=== PATIENT | female | born 1965 | race Caucasian/White ===

== ENCOUNTER → 2021-04-20 12:38 | Outpatient (BNVA) | payer OTHER, SELFPAY | PROVIDERS: PCP Internal Medicine; Visit Provider Surgery Vascular Surgery | DX: I73.9 Peripheral vascular disease, unspecified (principal); I83.12 Varicose veins of left lower extremity with inflammation; J44.9 Chronic obstructive pulmonary disease, unspecified; E03.9 Hypothyroidism, unspecified; F17.210 Nicotine dependence, cigarettes, uncomplicated; Z88.8 Allergy status to other drugs, medicaments and biological substances | CPT/HCPCS: 99212 ==

== ENCOUNTER 2021-05-01 09:57 | Outpatient (REF) | payer OTHER, SELFPAY ==
--- NOTE | ~2021-05-01 | US_ITS ---
EXAMINATION: US LOWER EXTREMITY VENOUS (REFLUX EXAM), BILATERAL CLINICAL INDICATION: This is a 56-year-old female with venous insufficiency and varicose veins. Previous history of bilateral laser ablation. COMPARISON: None. TECHNIQUE: Color flow triplex imaging and compression Doppler was performed to evaluate both the deep and the superficial systems bilaterally. To evaluate the superficial system, the examination was performed in the upright position. Color-flow Doppler ultrasound and compression ultrasound were utilized. In addition, maneuvers were utilized to demonstrate reflux. FINDINGS: 1. DEEP VENOUS ULTRASOUND OF THE RIGHT LOWER EXTREMITY: Common Femoral Vein: Compressible, normal respiratory variation and augmented flow. Femoral vein: Compressible, normal color flow and augmentation. Popliteal Vein: Compressible, normal augmentation. Deep Reflux: There is no evidence of reflux in the deep system in either the common femoral vein or the popliteal vein. There is no evidence of a Gonzalez's cyst. 2. SUPERFICIAL ULTRASOUND WITH DOPPLER OF RIGHT LOWER EXTREMITY: GREAT SAPHENOUS VEIN: Saphenofemoral Junction: 0.7 cm. There is no reflux. Mid Thigh: Not seen. Above Knee: Not seen. Below Knee: 0.3 cm. The reflux time is 3184 ms. Mid Calf: 0.3 cm. The reflux time is 1004 to 48 milliseconds. Ankle: 0.2 cm. The reflux time is 2716 ms. GSV REFLUX: The midportion of the great saphenous vein is absent and may have previously been treated. There is no reflux at the saphenofemoral junction. There is reflux below the knee. DUPLICATED GREAT SAPHENOUS VEIN: There is a 0.3 cm duplicated lateral great saphenous vein without evidence of reflux. SMALL SAPHENOUS VEIN: Proximal: 0.2 cm Distal: 0.2 cm SSV REFLUX: No evidence of reflux. VEIN OF GIACOMINI: None Imaged. PERFORATORS: There are 0.2 cm calf proximal perforators with 444 ms of reflux. There is a 0.4 cm mid calf leather tanner without reflux. VARICOSITIES: There are 0.4 cm varicose veins seen in the mid thigh, proximal calf, mid calf with greater than 3 seconds of reflux. 3. DEEP VENOUS ULTRASOUND OF THE LEFT LOWER EXTREMITY: Common Femoral Vein: Compressible, normal respiratory variation and augmented flow. Femoral Vein: Compressible, normal color flow and augmentation. Popliteal Vein: Compressible, normal augmentation. Deep Reflux: There is no evidence of reflux in the deep system in either the common femoral vein or the popliteal vein. There is no evidence of a Gonzalez's cyst. 4. SUPERFICIAL ULTRASOUND WITH DOPPLER OF LEFT LOWER EXTREMITY: GREAT SAPHENOUS VEIN: The mid thigh great saphenous vein is difficult to delineate downward. This may be secondary to previous treatment with a neovascularity that looks like the saphenous vein. Saphenofemoral Junction: 0.9 cm. There is no reflux. Mid Thigh: 0.3 cm. The reflux time is 1508 ms. Above Knee: 0.4 cm. The reflux time is 2228 ms. Below Knee: 0.2 cm. The reflux time is 1322 ms. Mid Calf: 0.1 cm. There is no reflux. Ankle: 0.3 cm. There is no reflux. GSV REFLUX: The great saphenous vein is difficult to delineate. However, reflux is noted. This vein may actually be more superficial to the great saphenous vein not within the fascia. DUPLICATED GREAT SAPHENOUS VEIN: There is a 0.6 cm duplicated lateral great saphenous vein without reflux at the junction. There is distal reflux where it measures 0.2 cm. The reflux time is 2124 ms. SMALL SAPHENOUS VEIN: Proximal: 0.2 cm Distal: 0.3 cm SSV REFLUX: No evidence of reflux. VEIN OF GIACOMINI: None Imaged. PERFORATORS: There are 0.2 cm distal and proximal calf perforators without reflux. VARICOSITIES: There are 0.8 cm and 0.7 cm, respectively, varicose veins. Some of these varicose veins demonstrate greater than 3 seconds of reflux. US/US venous duplex LE BI IMPRESSION: 1. The mid thigh right great saphenous vein appears occluded. There is no reflux at the saphenofemoral junction. There is distal right great saphenous vein reflux. 2. The right small saphenous vein is patent without reflux. 3. There are varicose veins measuring 0.4 cm in the right leg with greater than 3 seconds of reflux. 4. The left great saphenous vein appears patent at the saphenofemoral junction without reflux. There is a vein that appears to be outside the fascia which may be neovascularity. There is reflux in the segment from the mid thigh to below the knee. 5. There is a patent left small saphenous vein without reflux. 6. There are varicose veins in the left leg as noted with reflux.
== END 2021-05-01 09:58 | disposition home or self-care (01) ==
LOC: HO.US 09:57
PROVIDERS: PCP Internal Medicine; Visit Provider Surgery Vascular Surgery
DX: I83.12 Varicose veins of left lower extremity with inflammation (principal)
CPT/HCPCS: 93970

== ENCOUNTER 2021-05-16 09:33 | Outpatient (REF) | payer OTHER, SELFPAY ==
--- NOTE | ~2021-05-16 | US_ITS ---
EXAMINATION: US NONINVASIVE ASSESSMENT OF THE ARTERIES OF BOTH LOWER EXTREMITIES INCLUDING PVR EXAM AND BILATERAL LOWER EXTREMITY DUPLEX CLINICAL INFORMATION: Peripheral vascular disease, unspecified. COMPARISON: None TECHNIQUE: Ankle pulse volume recordings, ankle pressure measurements and ankle brachial indices were obtained of the lower extremity arterial system bilaterally in addition to duplex Doppler techniques with wave form analysis and measurement of velocities in the common femoral, profunda femoral, superficial femoral, popliteal, tibial and peroneal arteries. The study was performed only at rest. FINDINGS: RIGHT LEG 1. Right Ankle-Brachial Index: 0.94 (higher of the DP/PT) >0.97-1.25 = normal - no significant arterial disease 0.75-0.96 = mild peripheral arterial disease 0.5-0.74 = moderate peripheral arterial disease <0.50 = severe peripheral arterial disease <0.30 = critical arterial disease 2. Segmental Pressures (mmHg): Brachial: 156 Ankle: PT 157, DP 151 3. PVR Waveforms: Ankle: Abnormal--no dicrotic notch, somewhat irregular tracing possibly related to technical factors. 4. Direct Duplex: Common femoral artery: 194 cm/s, Multiphasic Profunda femoris artery: 95.6 cm/s, Monophasic Superficial femoral artery (proximal): 105 cm/s, Multiphasic Superficial femoral artery (mid): 138 cm/s, Multiphasic There is a collateral vessel off the midportion of the SFA with peak systolic velocity of 35.8 cm/s and monophasic flow. Superficial femoral artery (distal): 72.1 cm/s, Multiphasic Proximal Popliteal artery: 63.3 cm/s, Multiphasic Distal popliteal artery: 67.4 cm/s, Multiphasic Distal posterior tibial artery: 40.7 cm/s, Multiphasic There is a collateral vessel off the midportion of the posterior tibial artery with peak systolic velocity of 18.1 cm/s and monophasic flow. Peroneal artery: 33.1 cm/s, Multiphasic LEFT LE. Left Ankle-Brachial Index: 0.34 (higher of the DP/PT) >0.97-1.25 = normal - no significant arterial disease 0.75-0.96 = mild peripheral arterial disease 0.5-0.74 = moderate peripheral arterial disease <0.50 = severe peripheral arterial disease <0.30 = critical arterial disease 2. Segmental Pressures: Brachial: 160 Ankle: PT 54, DP 47 3. PVR Waveforms: Ankle: Abnormal--blunted waveform, no dicrotic notch. 4. Direct Duplex: Common femoral artery: 55.4 cm/s, Monophasic Profunda femoris artery: 32.1 cm/s, Monophasic Superficial femoral artery (proximal): 50 cm/s, Monophasic Superficial femoral artery (mid): 66.4 cm/s, Monophasic There is a collateral vessel off the midportion of the SFA with peak systolic velocity of 25.1 cm/s and monophasic flow. Superficial femoral artery (distal): 31.8 cm/s, Monophasic Proximal Popliteal artery: 26.5 cm/s, Monophasic Distal popliteal artery: 25.3 cm/s, Monophasic Distal posterior tibial artery: 26.9 cm/s, Monophasic Peroneal artery: 14.9 cm/s, Monophasic US/US arterial duplex LE BI IMPRESSION: On the right, the ankle-brachial index is 0.98. There is a somewhat irregular PVR waveform which may be secondary to technical factors and absence of dicrotic notch. There is multiphasic flow throughout the right lower extremity on Doppler ultrasound. On the left, the ankle-brachial index is 0.34, and there is an abnormal blunted PVR waveform. There is monophasic flow throughout the lower extremity. This would suggest inflow disease at the level of the iliacs.
== END 2021-05-16 09:34 | disposition home or self-care (01) ==
LOC: HO.US 09:33
PROVIDERS: PCP Internal Medicine; Visit Provider Surgery Vascular Surgery
DX: I73.9 Peripheral vascular disease, unspecified (principal)
CPT/HCPCS: 93923; 93925

== ENCOUNTER → 2021-05-23 10:40 | Outpatient (BNVA) | payer OTHER, SELFPAY | PROVIDERS: PCP Internal Medicine; Visit Provider Surgery Vascular Surgery | DX: I73.9 Peripheral vascular disease, unspecified (principal) | CPT/HCPCS: 99212 ==

== ENCOUNTER 2021-05-31 06:31 | Day surgery (SDC) | payer OTHER, SELFPAY ==
[2021-05-31] VITALS (12 sets, daily range): BP systolic 101–147; BP diastolic 47–77; PULSE 53–66; RESP 15–20; TEMP 36.1–36.8; O2SAT 96–99; BMI 36.2
[2021-05-31] MEDS: 0.9 % Sodium Chloride 1,000 ML 100 ML IVCONT (07:46)
[2021-05-31 08:03] LABS: MANUAL DIFF FLAG NO
[2021-05-31 08:05] LABS: Basophils Absolute Auto 0.1 X10*3/uL (0.0-0.2); Basophils Percent Auto 0.6 % (0-2); Eosinophils Absolute Auto 0.4 X10*3/uL (0.0-0.4); Eosinophils Percent Auto 4.5 % (0-4); Hemoglobin 13.8 g/dl (12.0-16.0); Imm Gran Abs Auto 0.03 X10*3/uL (0.00-0.03); Imm Gran Pct Auto 0.4 % (0.0-0.4); Lymphocytes Absolute Auto 1.6 X10*3/uL (1.2-4.9); Lymphocytes Percent Auto 19.4 % (20-40); Mean Corpuscular HGB Conc 33.7 g/dl (31.0-35.0); Mean Corpuscular Hemoglobin 31.2 pg (27.0-33.0); Mean Corpuscular Volume 92.8 fL (80.0-98.0); Mean Platelet Volume 8.9 fL (9.4-12.3); Monocytes Absolute Auto 0.6 X10*3/uL (0.1-1.2); Monocytes Percent Auto 6.9 % (2-11); Neutrophils Absolute Auto 5.5 x10*3/uL (2.0-8.3); Neutrophils Percent Auto 68.2 % (45-73); Platelet Count 240 X10*3/uL (160-400); Red Blood Count 4.42 X10*6/uL (4.20-5.50); Red Cell Distribution Width 12.7 % (11.0-16.0); White Blood Count 8.1 X10*3/uL (4.8-10.8)
[2021-05-31 08:22] LABS: Blood Urea Nitrogen 17 mg/dL (9-16); Creatinine Clr Calc Pharmacy 97.2; Estimated Glomerular Filt Rate > 60
--- NOTE | 2021-05-31 11:01 | P.OP_ITS ---
Operative Note Operative Note Date of Service: 05/31/21 Narrative: Angiogram report from [facility] Preoperative diagnosis: Atherosclerosis of left lower extremity with activity limiting claudication Postoperative diagnosis: Same Procedure: 1. Ultrasound-guided right common femoral access 2. Aortogram with imaging of iliac arteries Surgeon:Axel Marks M.D., FACS, RPVI Rod Mill Tender:None Anesthesia: Local with moderate conscious sedation. Total intraservice moderate sedation time was 30 minutes. I monitored the patient's level of consciousness and physiologic status continuously throughout the procedure. Specimens:none Drains:none Estimated blood loss: Less than 10 ml Implant: None Indications: 56-year-old female with left lower extremity activity limiting claudication now presents for endovascular intervention patient has signed the informed consent after reviewing risks, complications, benefits, and alternatives previously discussed with the patient. The patient was given the opportunity to ask any additional questions or voice any concerns. All questions were answered to the patient's satisfaction. Procedure in detail: Patient was brought to the angiography suite prior to which a time-out was called for patient identification and site verification. Bilateral groins were prepped and draped in the standard surgical fashion. Under ultrasound guidance rightcommon femoral was punctured with micro puncture needle and wire. Subsequently a precision 5 Croatian sheath was then placed. Lifestreamsson wire was advanced to the level of the aorta. 5 Croatian Flush catheter was brought up and parked at the level of the renal arteries. Aortogram was then undertaken. Catheter was brought down to the level of the iliac bifurcatio n. Iliacs were subsequently imaged. We undertook multiple orthogonal views. No intervention was indicated. Catheter wire sheath was then removed. Direct pressure was held for 10 minutes. Interpretation of films: 1. Ultrasound demonstrates appropriate femoral puncture. Image of which was saved. 2. Aortogram demonstrates appropriate caliber aorta. Minimal disease. Appropriate take-off of the renals. 3. Iliac images demonstrate right: No significant disease in the common iliac external iliac and internal iliac, good flow to the common femoral Left: Common iliac origin appears intact patent hypogastric. Total occlusion of the external iliac. Reconstitution at the common femoral with flow to the SFA and profundus Conclusion: 1. Successful diagnostic angiogram. The patient will require femoral to femoral bypass (right to left) 2. Anticoagulation status: No change This note is constructed using voice recognition software. While every effort has been made to ensure accuracy, rotary kiln operator errors may have been included. Thank you for allowing me to participate in the care of your patient. Yours sincerely, Axel Marks MD, FACS, R.P.V.I.
== END 2021-05-31 14:35 | disposition home or self-care (01) ==
PROVIDERS: PCP Internal Medicine; Visit Provider Surgery Vascular Surgery
DX: I70.212 Atherosclerosis of native arteries of extremities with intermittent claudication, left leg (principal); R26.2 Difficulty in walking, not elsewhere classified; Z79.891 Long term (current) use of opiate analgesic; Q76.49 Other congenital malformations of spine, not associated with scoliosis; J44.9 Chronic obstructive pulmonary disease, unspecified; Z88.8 Allergy status to other drugs, medicaments and biological substances; F17.210 Nicotine dependence, cigarettes, uncomplicated
CPT/HCPCS: 36245; 36415; 75630; 76937; 82565; 84520; 85025; C1769; C1887; J2250; J3010; Q9967

== ENCOUNTER → 2021-06-15 10:52 | Outpatient (BNVA) | payer OTHER, SELFPAY | PROVIDERS: PCP Internal Medicine; Visit Provider Surgery Vascular Surgery | DX: I73.9 Peripheral vascular disease, unspecified (principal) | CPT/HCPCS: 99212 ==

== ENCOUNTER → 2021-08-17 09:54 | Outpatient (BNVA) | payer OTHER, SELFPAY | PROVIDERS: PCP Internal Medicine; Visit Provider Surgery Vascular Surgery | DX: I73.9 Peripheral vascular disease, unspecified (principal) | CPT/HCPCS: 99212 ==

== ENCOUNTER 2021-09-04 06:13 | Inpatient (IN) | payer OTHER, SELFPAY ==
[2021-08-25 12:46] VITALS: BMI 39.4
[2021-08-28 12:05] VITALS: BP 147/77; PULSE 70; RESP 18; O2SAT 97
--- NOTE | 2021-08-28 12:15 | HO.ANESPROP2 ---
Documented by User: Mary Upton NP 09/01/21 09:25 HPI - Anesthesia Eval Consult details Narrative: 56yo F for Femoral Femoral Bypass Graft Cardiac cleared (false postive stress test to normal cath) Stable at 08/17/21 pulmonary appointment Methadone daily Postop vertigo treated well with scopolamine patch PMFSH Active Problems Active Problems: All Active Problems (Updated 08/28/21 @ 11:47 by Vale Ashley RN) PAD (peripheral artery disease) (Acute) Varicose veins of left lower extremity with inflammation (Acute) Past Medical History Medical History Anxiety Arthritis Bipolar depression Bursitis of hip, right Carpal tunnel syndrome COPD (chronic obstructive pulmonary disease) Degenerative disc disease, lumbar Depression Eczema Edema, lower extremity Elevated cholesterol GERD (gastroesophageal reflux disease) Hearing loss in left ear History of IBS History of palpitations History of stress incontinence Hx of renal calculi Hypothyroidism Pinched nerve Psoriasis PTSD (post-traumatic stress disorder) Vertigo Family History Family history of problems with anesthesia: No Surgical History Surgical History History of back surgery History of esophagogastroduodenoscopy (EGD) History of left mastoidectomy Hx laparoscopic cholecystectomy Hx of colonoscopy Hx of tonsillectomy Hx of total hysterectomy Hx of tubal ligation History of Problems with Anesthesia: No Social History Social History Do you presently have visiting nurse or other home services: Yes ([employer] daily 15 hours/week) Patient Tobacco Use Status: Current everyday Tobacco user Smoking Start Date: 04/18/77 Tobacco use type: Cigarette Cigarette Packs Per Day: 1.5 Cigarettes Per Day: 30.0 Years Smoked: 44 Smoked in Last 30 Days: Yes Patient Interested in Nicotine Replacement: Yes Patient Given Instructions on How to Stop Smoking: Yes Date Education Initiated: 08/25/21 Second Hand Smoke Exposure: No Substance Use Type Other:: no heroin for 1 year, on Methadone since 11/2020 before that on Suboxone Have you been hit, kicked, punched, or otherwise hurt by someone within the past year? If so, by whom?: No Are you DNR?: No Advance Directives: Yes Advance Directives Information Provided: No Advance Directives on File: Yes Advance Directives Date on File: 05/23/21 Narrative Narrative: No recent illness No CP/SOB within limits of LE pain Meds Allergies Allergy/AdvReac Type Severity Reaction Status Date / Time varenicline Allergy Intermediate vertigo Verified 09/04/21 06:21 Home Medications Medication Instructions Recorded Confirmed Last Taken Type albuterol sulfate 90 mcg/actuation 2 puff inhalation Q4-6H PRN 04/20/21 08/25/21 Unknown History aerosol inhaler (Ventolin HFA) Shortness Of Breath Or Wheezing hydrochlorothiazide 25 mg tablet 25 mg PO DAILY 04/20/21 08/25/21 Unknown History levothyroxine 200 mcg tablet 200 mcg PO DAILY 04/20/21 08/25/21 09/04/21 History nystatin 100,000 unit/gram topical topical BID PRN Skin Irritation 04/20/21 Unknown History cream pantoprazole 40 mg tablet,delayed 40 mg PO BID 04/20/21 08/25/21 09/04/21 History release propranolol 20 mg tablet 20 mg PO DAILY 04/20/21 08/25/21 09/04/21 History sertraline 100 mg tablet 100 mg PO TID 04/20/21 08/25/21 09/04/21 History theophylline 300 mg 300 mg PO BID 04/20/21 08/25/21 09/04/21 History tablet,extended release,12 hr atorvastatin 40 mg tablet 40 mg PO BEDTIME 06/15/21 08/25/21 Unknown History calcipotriene 0.005 % topical 1 appl topical BID PRN Skin 08/17/21 08/25/21 Unknown History ointment Irritation clonazepam 1 mg tablet 1 mg PO BID PRN Anxiety 08/17/21 08/25/21 Unknown History ferrous fumarate 325 mg (106 mg 325 mg PO DAILY 08/17/21 08/25/21 Unknown History iron) tablet (Ferretts) fluticasone fur. 200 mcg-umeclid 1 inh PO DAILY 08/17/21 08/25/21 Unknown History 62.5 mcg-vilant 25 mcg inhalat.powder (Trelegy Ellipta) methadone 10 mg/5 mL oral solution 44 mg PO DAILY 08/17/21 09/04/21 09/04/21 History triamcinolone acetonide 0.025 % 1 appl topical BID PRN Skin 08/17/21 08/25/21 Unknown History topical cream Irritation aspirin 81 mg tablet,delayed 81 mg PO DAILY 08/25/21 08/25/21 09/04/21 History release lactulose 10 gram/15 mL oral 15 ml PO TID PRN Abdominal 08/25/21 08/25/21 Unknown History solution Discomfort meclizine 25 mg tablet 1 tab PO TID PRN dizziness 08/25/21 08/25/21 Unknown History Exam Exam Date and Time: August 28, 2021 1215 Height,Weight and Vital Signs: Height 5 ft 9 in Weight 121.109 kg Last Vital Signs Pulse 70 08/28/21 12:05 Resp 18 08/28/21 12:05 BP 147/77 H 08/28/21 12:05 Pulse Ox 97 08/28/21 12:05 O2 Del Method 08/28/21 12:05 Pertinent Lab Results Pertinent Lab Results: Lab Results 08/28/21 08/28/21 08/28/21 Range/Units 12:38 12:40 12:40 WBC 9.3 (4.8-10.8) X10*3/uL RBC 4.41 (4.20-5.50) X10*6/uL Hgb 13.7 (12.0-16.0) g/dl Hct 41.1 (37.0-47.0) % MCV 93.2 (80.0-98.0) fL MCH 31.1 (27.0-33.0) pg MCHC 33.3 (31.0-35.0) g/dl RDW 12.7 (11.0-16.0) % Plt Count 242 (160-400) X10*3/uL MPV 8.9 L (9.4-12.3) fL Absolute Nucleated RBC 0.000 (0.0-0.012) X10*3/uL Nucleated RBC % (auto) 0.0 (0.0-0.2) /100WBC PT 12.0 (10.0-13.1) SEC INR 1.0 (0.9-1.1) APTT 36.5 (24.1-38.0) SEC Sodium (135-145) mmol/L Potassium (3.3-5.1) mmol/L Chloride (96-108) mmol/L Carbon Dioxide (22-29) mmol/L Anion Gap (12-20) BUN (9-16) mg/dL Creatinine (0.5-1.4) mg/dL Estim Creat Clear Calc Estimated GFR Random Glucose (60-115) mg/dL Calcium (8.4-10.2) mg/dL Blood Type A Negative Antibody Screen NEGATIVE 08/28/21 Range/Units 12:40 WBC (4.8-10.8) X10*3/uL RBC (4.20-5.50) X10*6/uL Hgb (12.0-16.0) g/dl Hct (37.0-47.0) % MCV (80.0-98.0) fL MCH (27.0-33.0) pg MCHC (31.0-35.0) g/dl RDW (11.0-16.0) % Plt Count (160-400) X10*3/uL MPV (9.4-12.3) fL Absolute Nucleated RBC (0.0-0.012) X10*3/uL Nucleated RBC % (auto) (0.0-0.2) /100WBC PT (10.0-13.1) SEC INR (0.9-1.1) APTT (24.1-38.0) SEC Sodium 139 (135-145) mmol/L Potassium 4.9 (3.3-5.1) mmol/L Chloride 104 (96-108) mmol/L Carbon Dioxide 28 (22-29) mmol/L Anion Gap 12 (12-20) BUN 17 H (9-16) mg/dL Creatinine 0.98 (0.5-1.4) mg/dL Estim Creat Clear Calc 90.3 Estimated GFR 59 Random Glucose 86 (60-115) mg/dL Calcium 9.7 (8.4-10.2) mg/dL Blood Type Antibody Screen Narrative Narrative: EKG 05/2021 NSR @ 68 Cardiac Cath 07/2021 Coronary angiography show minimal CAD. Stress test findings are false positive. Her risk for cardiac complications around the time of surgery is LOW. PFT 05/2020 Mild airflow obstruction FEV1 was 3.03L or 95% predicted, FEV1/FVC was 75% Airway Mallampati Class: III TM Dist: >3cm Neck ROM: Full Loose/Missing/Broken Teeth: Yes (Left upper molar broken, molars missing) Heart: RRR Lungs: CTAB Assessment and Plan Assessment Anesthesia Assessment: Anesthesia Plan Discussed, Smoking Cess. Discussed and PAT Visit Final Anesthetic Review Family History of Problems with Anesthesia: No History of Problems with Anesthesia: No Documented by User: Suzy Valdovinos MD 09/04/21 07:31 PMFSH Active Problems Active Problems: All Active Problems (Updated 08/28/21 @ 11:47 by Vale Ashley RN) PAD (peripheral artery disease) (Acute) Varicose veins of left lower extremity with inflammation (Acute) Denies MELANIE No h/o TIA, CVA Past Medical History Medical History Anxiety Arthritis Bipolar depression Bursitis of hip, right Carpal tunnel syndrome COPD (chronic obstructive pulmonary disease) Degenerative disc disease, lumbar Depression Eczema Edema, lower extremity Elevated cholesterol GERD (gastroesophageal reflux disease) Hearing loss in left ear History of IBS History of palpitations History of stress incontinence Hx of renal calculi Hypothyroidism Pinched nerve Psoriasis PTSD (post-traumatic stress disorder) Vertigo Surgical History Surgical History History of back surgery History of esophagogastroduodenoscopy (EGD) History of left mastoidectomy Hx laparoscopic cholecystectomy Hx of colonoscopy Hx of tonsillectomy Hx of total hysterectomy Hx of tubal ligation Social History Social History Do you presently have visiting nurse or other home services: Yes ([employer] daily 15 hours/week) Patient Tobacco Use Status: Current everyday Tobacco user Smoking Start Date: 04/18/77 Tobacco use type: Cigarette Cigarette Packs Per Day: 1.5 Cigarettes Per Day: 30.0 Years Smoked: 44 Smoked in Last 30 Days: Yes Patient Interested in Nicotine Replacement: Yes Patient Given Instructions on How to Stop Smoking: Yes Date Education Initiated: 08/25/21 Second Hand Smoke Exposure: No Substance Use Type Other:: no heroin for 1 year, on Methadone since 11/2020 before that on Suboxone Have you been hit, kicked, punched, or otherwise hurt by someone within the past year? If so, by whom?: No Are you DNR?: No Advance Directives: Yes Advance Directives Information Provided: No Advance Directives on File: Yes Advance Directives Date on File: 05/23/21 Meds Allergies Allergy/AdvReac Type Severity Reaction Status Date / Time varenicline Allergy Intermediate vertigo Verified 09/04/21 06:21 Home Medications Medication Instructions Recorded Confirmed Last Taken Type albuterol sulfate 90 mcg/actuation 2 puff inhalation Q4-6H PRN 04/20/21 08/25/21 Unknown History aerosol inhaler (Ventolin HFA) Shortness Of Breath Or Wheezing hydrochlorothiazide 25 mg tablet 25 mg PO DAILY 04/20/21 08/25/21 Unknown History levothyroxine 200 mcg tablet 200 mcg PO DAILY 04/20/21 08/25/21 09/04/21 History nystatin 100,000 unit/gram topical topical BID PRN Skin Irritation 04/20/21 Unknown History cream pantoprazole 40 mg tablet,delayed 40 mg PO BID 04/20/21 08/25/21 09/04/21 History release propranolol 20 mg tablet 20 mg PO DAILY 04/20/21 08/25/21 09/04/21 History sertraline 100 mg tablet 100 mg PO TID 04/20/21 08/25/21 09/04/21 History theophylline 300 mg 300 mg PO BID 04/20/21 08/25/21 09/04/21 History tablet,extended release,12 hr atorvastatin 40 mg tablet 40 mg PO BEDTIME 06/15/21 08/25/21 Unknown History calcipotriene 0.005 % topical 1 appl topical BID PRN Skin 08/17/21 08/25/21 Unknown History ointment Irritation clonazepam 1 mg tablet 1 mg PO BID PRN Anxiety 08/17/21 08/25/21 Unknown History ferrous fumarate 325 mg (106 mg 325 mg PO DAILY 08/17/21 08/25/21 Unknown History iron) tablet (Wiley) fluticasone fur. 200 mcg-umeclid 1 inh PO DAILY 08/17/21 08/25/21 Unknown History 62.5 mcg-vilant 25 mcg inhalat.powder (Trelegy Ellipta) methadone 10 mg/5 mL oral solution 44 mg PO DAILY 08/17/21 09/04/21 09/04/21 History triamcinolone acetonide 0.025 % 1 appl topical BID PRN Skin 08/17/21 08/25/21 Unknown History topical cream Irritation aspirin 81 mg tablet,delayed 81 mg PO DAILY 08/25/21 08/25/21 09/04/21 History release lactulose 10 gram/15 mL oral 15 ml PO TID PRN Abdominal 08/25/21 08/25/21 Unknown History solution Discomfort meclizine 25 mg tablet 1 tab PO TID PRN dizziness 08/25/21 08/25/21 Unknown History Exam Height,Weight and Vital Signs: Height 5 ft 9 in Weight 121.109 kg Last Vital Signs Pulse 70 08/28/21 12:05 Resp 18 08/28/21 12:05 BP 147/77 H 08/28/21 12:05 Pulse Ox 97 08/28/21 12:05 O2 Del Method 08/28/21 12:05 Vital Signs Temp Pulse Resp BP Pulse Ox O2 Del Method 09/04/21 06:27 98.3 F 65 18 140/63 H 96 Room Air Pertinent Lab Results Pertinent Lab Results: Lab Results 08/28/21 08/28/21 08/28/21 Range/Units 12:38 12:40 12:40 WBC 9.3 (4.8-10.8) X10*3/uL RBC 4.41 (4.20-5.50) X10*6/uL Hgb 13.7 (12.0-16.0) g/dl Hct 41.1 (37.0-47.0) % MCV 93.2 (80.0-98.0) fL MCH 31.1 (27.0-33.0) pg MCHC 33.3 (31.0-35.0) g/dl RDW 12.7 (11.0-16.0) % Plt Count 242 (160-400) X10*3/uL MPV 8.9 L (9.4-12.3) fL Absolute Nucleated RBC 0.000 (0.0-0.012) X10*3/uL Nucleated RBC % (auto) 0.0 (0.0-0.2) /100WBC PT 12.0 (10.0-13.1) SEC INR 1.0 (0.9-1.1) APTT 36.5 (24.1-38.0) SEC Sodium (135-145) mmol/L Potassium (3.3-5.1) mmol/L Chloride (96-108) mmol/L Carbon Dioxide (22-29) mmol/L Anion Gap (12-20) BUN (9-16) mg/dL Creatinine (0.5-1.4) mg/dL Estim Creat Clear Calc Estimated GFR Random Glucose (60-115) mg/dL Calcium (8.4-10.2) mg/dL Blood Type A Negative Antibody Screen NEGATIVE 08/28/21 Range/Units 12:40 WBC (4.8-10.8) X10*3/uL RBC (4.20-5.50) X10*6/uL Hgb (12.0-16.0) g/dl Hct (37.0-47.0) % MCV (80.0-98.0) fL MCH (27.0-33.0) pg MCHC (31.0-35.0) g/dl RDW (11.0-16.0) % Plt Count (160-400) X10*3/uL MPV (9.4-12.3) fL Absolute Nucleated RBC (0.0-0.012) X10*3/uL Nucleated RBC % (auto) (0.0-0.2) /100WBC PT (10.0-13.1) SEC INR (0.9-1.1) APTT (24.1-38.0) SEC Sodium 139 (135-145) mmol/L Potassium 4.9 (3.3-5.1) mmol/L Chloride 104 (96-108) mmol/L Carbon Dioxide 28 (22-29) mmol/L Anion Gap 12 (12-20) BUN 17 H (9-16) mg/dL Creatinine 0.98 (0.5-1.4) mg/dL Estim Creat Clear Calc 90.3 Estimated GFR 59 Random Glucose 86 (60-115) mg/dL Calcium 9.7 (8.4-10.2) mg/dL Blood Type Antibody Screen Laboratory Results - last 24 hr 09/04/21 06:10 COVID-19 ([facility]) Negative COVID-19 Clin Com See Note Airway Lungs: CTAB. Diminished Assessment and Plan Assessment Anesthesia Assessment: Chart Reviewed Final Anesthetic Review NPO: Yes ASA Class: III Final Preanesthetic Review: No Changes in Pt Med Stat, Meds/Allgs Chart Reviewed, Consent Obtained/Reviewed and Anes Risks/Benef Reviewed Patient Risk: Intermediate Procedure Risk: High Assessment/Block/Sedation in SS: Assess/Block/Sedation-SS Anesthetic Plan Anesthetic Plan: GA and Other (Arterial line) Disposition: Standard PACU and Inp. Admit - ICU
[2021-08-28 13:13] LABS: Hematocrit 41.1 % (37.0-47.0); Hemoglobin 13.7 g/dl (12.0-16.0); Mean Corpuscular HGB Conc 33.3 g/dl (31.0-35.0); Mean Corpuscular Hemoglobin 31.1 pg (27.0-33.0); Mean Corpuscular Volume 93.2 fL (80.0-98.0); Mean Platelet Volume 8.9 fL (9.4-12.3); Platelet Count 242 X10*3/uL (160-400); Red Blood Count 4.41 X10*6/uL (4.20-5.50); Red Cell Distribution Width 12.7 % (11.0-16.0); White Blood Count 9.3 X10*3/uL (4.8-10.8)
[2021-08-28 13:19] LABS: Partial Thromboplastin Time 36.5 SEC (24.1-38.0)
[2021-08-28 13:40] LABS: Anion Gap 12 (12-20); Blood Urea Nitrogen 17 mg/dL (9-16); Calcium 9.7 mg/dL (8.4-10.2); Carbon Dioxide 28 mmol/L (22-29); Chloride 104 mmol/L (96-108); Creatinine Clr Calc Pharmacy 90.3; Estimated Glomerular Filt Rate 59; Glucose Random 86 mg/dL (60-115); Potassium 4.9 mmol/L (3.3-5.1); Sodium 139 mmol/L (135-145)
[2021-09-04] VITALS (21 sets, daily range): BP systolic 105–179; BP diastolic 43–74; PULSE 60–76; RESP 10–18; TEMP 36.1–37.2; O2SAT 90–98
[2021-09-04] MEDS: Lactated Ringers 1,000 ML 100 ML IVCONT ×2 (06:31→16:08)
[2021-09-04] MEDS: Scopolamine 1.5 MG PATCH.TD.3 TRANSDERMA (06:32)
[2021-09-04 06:38] LABS: COVID-19 Test Negative (Negative)
--- NOTE | 2021-09-04 07:17 | MHC.SHP ---
Pre-Procedural Eval Section A Date of Service: 09/04/21 The patient is an INPATIENT: No Changes since office visit: Yes Patient answered all questions The History & Physical has been completed within 30 days and I have reviewed it.: No Section B Chief Complaint: Postop Allergies: Allergies Allergy/AdvReac Type Severity Reaction Status Date / Time varenicline Allergy Intermediate vertigo Verified 09/04/21 06:21 Plan I have reviewed the history and physical and performed a pertinent physical examination on my patient. No changes have occurred unless specified.
--- NOTE | 2021-09-04 07:28 | PHA.MEDREC ---
Pharmacy Consult ? Medication Reconciliation Pharmacy has reviewed the medication reconciliation completed by nursing. Methadone verification has been received. Patient to receive methadone 44mg 08/31 to 09/06. Then decrease to 43 mg to 09/07 to 09/13. Katie Zamora, PharmD
[2021-09-04] MEDS: ceFAZolin Sodium/Dextrose,Iso 2 GM/50 ML PIGGYBACK IV ×2 (08:05→14:37)
--- NOTE | 2021-09-04 10:53 | W.PM.OPN ---
Operative Note Operative Note Date of Service: 09/04/21 Narrative: Operative note by [facility] Preoperative diagnosis: Atherosclerosis with left lower extremity activity limiting claudication Postoperative diagnosis: Same Procedure:1 femoral to femoral bypass 2 right femoral endarterectomy Surgeon:Axel Marks M.D. Executive Director [employer] Workshop: Dr. Bailey Anesthesia: General Specimens: 1 Drains: None Estimated blood loss: 150 mL Indications: 56-year-old female with a history of severe activity limiting claudication presents for operative intervention The patient has signed the informed consent after reviewing risks, complications, benefits, and alternatives previously discussed with the patient. The patient was given the opportunity to ask any additional questions or voice any concerns. All questions were answered to the patient's satisfaction. Procedure in detail: Patient was brought to the operating room prior to which a time-out was called for patient identification site verification abdomen bilateral groins were prepped and draped in standard surgical fashion. We created a cutdown on bilateral common femoral arteries. This was was a length in process due to her overall body habitus. Once we were able to identify the common femoral arteries we were able to circumferentially isolate these with vessel loops. Once this was all accomplished we created a tunnel using an aortic clamp from the right to the left in a subcu fashion. Once this was accomplished 8000 units of systemic heparin was administered. After 5 minutes of circulation time we then approached the right groin. Proximally and distally we clamped. We made an arteriotomy with an 11 blade. We had to do local femoral endarterectomy. we trimmed a [place] Propaten 6 mm graft to the appropriate size. Once this was done we circumferentially anastomosed with a CV5 [place] suture. Prior to closure we flushed clear. We then tunnel the graft through using the prior created tunnel. Once we brought to the contralateral side we then trimmed the graft to the appropriate size. In a similar fashion we circumferentially anastomosed with a CV 5 suture. Prior to closure we flushed clear. Patient then wish checked with a Doppler where we clearly noted beyond on the left side in the common femoral a change in caliber of signal when the graft was clamped and opened. Once this was done adequate hemostasis was achieved interrupted 6 0 in 7 0 Prolene sutures had to be placed. We then thoroughly irrigated the area out. Once this was all accomplished we placed Tisseel sealant. At this time deep layer was reapproximated using 2 0 poly Sorb. Superficial layer with 3-0 poly Sorb and finally skin with skin clips. Sterile dressing were applied. At the end the case sponge instrument counts were correct. Patient tolerated the procedure well. Returned to recovery with stable vitals. This note is constructed using voice recognition software. While every effort has been made to ensure accuracy, battery filler errors may have been included. Thank you for allowing me to participate in the care of your patient. Yours sincerely, Axel Marks MD, FACS, R.P.V.I.
[2021-09-04] MEDS: oxyCODONE HCl Immed Release 5 MG TABLET 10 MG PO (11:59)
[2021-09-04] MEDS: Acetaminophen 325 MG TABLET 650 MG PO (12:00)
--- NOTE | 2021-09-04 12:46 | HE.PHANOTE ---
Methadone taper Per [facility]- patient is currently on a methadone taper to dose reduce by 1 mg every 7 days; spoke to Dr. Marks and I have put in two tapers in case the patient is here longer than expected; pt currently on 44mg but will be reduced to 43mg on 09/07/21. An order has also been entered for 42mg to be started 09/14/[address] Marks.
--- NOTE | 2021-09-04 13:08 | W.PM.CCCN ---
History of Present Illness Data of Consult Service Date: 09/04/21 Requesting physician: Axel Marks Primary Care Provider: Chapin Collier MD HPI Reason for consult: Peripheral vascular disease status post fem fem bypass 56-year-old moderately obese female continue 2 pack-a-day smoker with known peripheral vascular disease and left external iliac occlusion with severe ankle brachial index reduction and severe resting claudication of left lower extremity now status post fem-fem bypass who had cardiac catheterization a month ago demonstrating no significant coronary obstruction and my bedside echo now demonstrating globally normal systolic wall motion of the left ventricle and right ventricle no primary valve or pericardial disease ejection fraction 60+% She has underlying COPD not apparently oxygen requiring and she is on a methadone program and has a background of underlying hypertension Review of Systems Review of Systems: Yes all other systems are reviewed and are negative [facility] Past Medical History Medical History (Updated 09/04/21 @ 13:12 by Yina Buckner MD) Anxiety Arthritis Bipolar depression Bursitis of hip, right Carpal tunnel syndrome COPD (chronic obstructive pulmonary disease) COPD (chronic obstructive pulmonary disease) Degenerative disc disease, lumbar Depression Eczema Edema, lower extremity Elevated cholesterol GERD (gastroesophageal reflux disease) Hearing loss in left ear History of IBS History of palpitations History of stress incontinence Hx of renal calculi Hypothyroidism Moderate obesity Pinched nerve Psoriasis PTSD (post-traumatic stress disorder) Vertigo Surgical History Surgical History History of back surgery History of esophagogastroduodenoscopy (EGD) History of left mastoidectomy Hx laparoscopic cholecystectomy Hx of colonoscopy Hx of tonsillectomy Hx of total hysterectomy Hx of tubal ligation Social History Social History Do you presently have visiting nurse or other home services: Yes ([employer] daily 15 hours/week) Patient Tobacco Use Status: Current everyday Tobacco user Smoking Start Date: 04/18/77 Tobacco use type: Cigarette Cigarette Packs Per Day: 1.5 Cigarettes Per Day: 30.0 Years Smoked: 44 Smoked in Last 30 Days: Yes Patient Interested in Nicotine Replacement: Yes Patient Given Instructions on How to Stop Smoking: Yes Date Education Initiated: 08/25/21 Second Hand Smoke Exposure: No Substance Use Type Other:: no heroin for 1 year, on Methadone since 11/2020 before that on Suboxone Have you been hit, kicked, punched, or otherwise hurt by someone within the past year? If so, by whom?: No Are you DNR?: No Advance Directives: Yes Advance Directives Information Provided: No Advance Directives on File: Yes Advance Directives Date on File: 05/23/21 Meds Allergies Allergy/AdvReac Type Severity Reaction Status Date / Time varenicline Allergy Intermediate vertigo Verified 09/04/21 06:21 Active Medications: Current Medications Acetaminophen (Acetaminophen 325 Mg Tablet) 650 mg PO Q6H PRN PRN Reason: Pain, Mild (Pain Scale 1-3) Last Admin: 09/04/21 12:00 Dose: 650 mg Acetaminophen (Acetaminophen Supp 650 Mg Supp.Rect) 650 mg NC Q6H PRN PRN Reason: Pain, Mild (Pain Scale 1-3) Albuterol Sulfate (Albuterol Sulfate (0.083%) 2.5 Mg/3 Ml Vial.Neb) 2.5 mg INHALE ONCE PRN PRN Reason: Shortness of Breath/Wheezing Albuterol Sulfate (Albuterol Sulfate 90 Mcg 8 Gm Inhaler) 2 puff INHALE Q4H PRN PRN Reason: Shortness Of Breath Or Wheezing Aspirin (Aspirin Enteric Coated 81 Mg Tablet.Dr) 81 mg PO DAILY [facility] Atorvastatin Calcium (Atorvastatin Calcium 40 Mg Tablet) 40 mg PO BEDTIME [facility] Fentanyl (Fentanyl Citrate/Pf 100 Mcg/2 Ml Vial) 25 mcg IVPUSH Q5M PRN; Protocol PRN Reason: Pain, Moderate (Pain Scale 4-6 Hydrochlorothiazide (Hydrochlorothiazide 25 Mg Tablet) 25 mg PO DAILY [facility]EN; Protocol Hydromorphone HCl (Hydromorphone Hcl 0.5 Mg/0.5 Ml Syringe) 0.25 mg IVPUSH Q5M PRN; Protocol PRN Reason: Pain, Severe (Pain Scale 7-10) Lactated Ringer's (Lr) 1,000 mls @ 100 mls/hr IVCONT .Q10H [facility] Last Admin: 09/04/21 06:31 Dose: 100 mls/hr Promethazine HCl 6.25 mg/ (Sodium Chloride) 50.25 mls @ 201 mls/hr IV ONCE PRN PRN Reason: Nausea and Vomiting Sodium Chloride (Ns) 1,000 mls @ 80 mls/hr IVCONT .[id number] [facility] Cefazolin Sodium/Dextrose (Ancef) 2 gm in 50 mls @ 100 mls/hr IV POSTOP ONE Stop: 09/04/21 14:29 Levothyroxine Sodium (Levothyroxine Sodium 200 Mcg Tablet) 200 mcg PO DAILY [facility] Meclizine HCl (Meclizine Hcl 25 Mg Tablet) 25 mg PO TID PRN PRN Reason: dizziness Methadone HCl (Methadone Hcl 20 Mg/2 Ml Oral.Conc) 44 mg PO DAILY [facility] Stop: 09/06/21 09:01 Methadone HCl (Methadone Hcl 20 Mg/2 Ml Oral.Conc) 43 mg PO DAILY [facility] Stop: 09/13/21 09:01 Methadone HCl (Methadone Hcl 20 Mg/2 Ml Oral.Conc) 42 mg PO DAILY [facility] Stop: 09/20/21 09:01 Morphine Sulfate (Morphine Sulfate 2 Mg/Ml Cartridge) 2 mg IVPUSH Q4H PRN; Protocol PRN Reason: Pain, Severe (Pain Scale 7-10) Ondansetron HCl (Ondansetron Hcl 4 Mg/2 Ml Vial) 4 mg IVPUSH ONCE PRN PRN Reason: Nausea and Vomiting Oxycodone HCl (Oxycodone Hcl Immed Release 5 Mg Tablet) 5 mg PO ONCE PRN PRN Reason: Pain, Severe (Pain Scale 7-10) Oxycodone HCl (Oxycodone Hcl Immed Release 5 Mg Tablet) 5 mg PO Q4H PRN PRN Reason: Pain, Moderate (Pain Scale 4-6 Propranolol HCl (Propranolol Hcl 20 Mg Tablet) 20 mg PO DAILY [facility]; Protocol Sertraline HCl (Sertraline Hcl 100 Mg Tablet) 100 mg PO TID [facility] Sodium Chloride (0.9 % Sodium Chloride Flush 3 Ml Syringe) 3 ml IVFLUSH QSHIFT [facility] Theophylline (Theophylline Anhydrous Er 300 Mg Tab.Er.12h) 300 mg PO BID [facility] Home Medications Medication Instructions Recorded Confirmed Last Taken Type albuterol sulfate 90 mcg/actuation 2 puff inhalation Q4-6H PRN 04/20/21 08/25/21 Unknown History aerosol inhaler (Ventolin HFA) Shortness Of Breath Or Wheezing hydrochlorothiazide 25 mg tablet 25 mg PO DAILY 04/20/21 08/25/21 Unknown History levothyroxine 200 mcg tablet 200 mcg PO DAILY 04/20/21 08/25/2122 History nystatin 100,000 unit/gram topical topical BID PRN Skin Irritation 04/20/21 Unknown History cream pantoprazole 40 mg tablet,delayed 40 mg PO BID 04/20/21 08/25/21 09/04/21 History release propranolol 20 mg tablet 20 mg PO DAILY 04/20/21 08/25/21 09/04/21 History sertraline 100 mg tablet 100 mg PO TID 04/20/21 08/25/21 09/04/21 History theophylline 300 mg 300 mg PO BID 04/20/21 08/25/21 09/04/21 History tablet,extended release,12 hr atorvastatin 40 mg tablet 40 mg PO BEDTIME 06/15/21 08/25/21 Unknown History calcipotriene 0.005 % topical 1 appl topical BID PRN Skin 08/17/21 08/25/21 Unknown History ointment Irritation clonazepam 1 mg tablet 1 mg PO BID PRN Anxiety 08/17/21 08/25/21 Unknown History ferrous fumarate 325 mg (106 mg 325 mg PO DAILY 08/17/21 08/25/21 Unknown History iron) tablet (Ferretts) fluticasone fur. 200 mcg-umeclid 1 inh PO DAILY 08/17/21 08/25/21 Unknown History 62.5 mcg-vilant 25 mcg inhalat.powder (Trelegy Ellipta) methadone 10 mg/5 mL oral solution 44 mg PO DAILY 08/17/21 09/04/21 09/04/21 History triamcinolone acetonide 0.025 % 1 appl topical BID PRN Skin 08/17/21 08/25/21 Unknown History topical cream Irritation aspirin 81 mg tablet,delayed 81 mg PO DAILY 08/25/21 08/25/21 09/04/21 History release lactulose 10 gram/15 mL oral 15 ml PO TID PRN Abdominal 08/25/21 08/25/21 Unknown History solution Discomfort meclizine 25 mg tablet 1 tab PO TID PRN dizziness 08/25/21 08/25/21 Unknown History Physical Exam Vital Signs: Vital Signs: Last Vital Signs Temp 97 F 09/04/21 12:05 Pulse 64 09/04/21 12:05 Resp 16 09/04/21 12:05 BP 134/64 09/04/21 12:05 Pulse Ox 95 09/04/21 12:05 O2 Del Method 09/04/21 12:05 O2 Flow Rate 2 09/04/21 12:05 BMI result Body Mass Index 39.4 Awake and alert talking nonfocal neurologically Bedside echo with class 1 LV and RV function Diminished bilateral breath sounds but no adventitious sounds Abdomen soft with no organomegaly Good bruit over the graft and good bilateral distal pulses Skin color quality is good Results Labs CBC & Chem 7: 08/28/21 12:40 08/28/21 12:40 Assessment and Plan (1) PAD (peripheral artery disease): Status: Acute (2) Varicose veins of left lower extremity with inflammation: Status: Acute (3) COPD (chronic obstructive pulmonary disease): Status: Acute (4) Moderate obesity: Status: Acute Plan Methadone maintenance along with p.r.n. opiates for more severe pain monitor her periphery keep IV fluid and at least aspirin for now on board and observe for signs of ischemia
[2021-09-04] MEDS: 0.9 % Sodium Chloride 1,000 ML 80 ML IVCONT (13:14)
[2021-09-04] MEDS: Sertraline HCL 100 MG TABLET PO ×2 (14:39→20:29)
[2021-09-04] MEDS: Morphine Sulfate 2 MG/ML CARTRIDGE IVPUSH ×2 (15:39→20:25)
[2021-09-04] MEDS: Nicotine 21 MG PATCH.TD24 TRANSDERMA (15:40)
[2021-09-04] MEDS: 0.9 % Sodium Chloride Flush 3 ML SYRINGE IVFLUSH (16:08)
[2021-09-04] MEDS: Atorvastatin Calcium 40 MG TABLET PO (20:29)
[2021-09-04] MEDS: Theophylline Anhydrous ER 300 MG TAB.ER.12H PO (20:29)
[2021-09-05] VITALS (17 sets, daily range): BP systolic 92–137; BP diastolic 46–98; PULSE 62–79; RESP 9–19; TEMP 36.4–37.2; O2SAT 89–99; BMI 41.6
[2021-09-05] MEDS: Lactated Ringers 1,000 ML 100 ML IVCONT ×3 (01:28→19:36)
[2021-09-05] MEDS: 0.9 % Sodium Chloride Flush 3 ML SYRINGE IVFLUSH ×4 (01:28→19:38)
[2021-09-05] MEDS: Morphine Sulfate 2 MG/ML CARTRIDGE IVPUSH ×4 (02:45→19:36)
--- NOTE | 2021-09-05 04:39 | PC.NURSE ---
ASSUMED CARE OF PT AT 1900. PT A&O X3. C/O BACK AND RT LEG PAIN. RECEIVED MORPHINE 2 MG IVP X2 PRN WITH GOOD EFFECT. PT TURNED AND REPOS WITH BACK CARE GIVEN. BILAT GROIN DRESSINGS INTACT WITH SMALL AMT OF STAINING ON RT GROIN DSG. BILAT PEDAL AND POST TIBIAL PULSES PALABLE AND AUDIBLE WITH A DOPPLER, LEFT >RIGHT. PT DENIES NUMBNESS OR TINGLING OF LEGS OR FEET. SHAUN INTACT LEFT RADIAL WITH GOOD WAVEFORM, AT TIMES POSITIONAL. LINE ZERO TRIMMED AND CALIBRATED TO ATMOSPHERIC PRESSURE.
[2021-09-05 05:47] LABS: MANUAL DIFF FLAG NO
[2021-09-05 05:49] LABS: Basophils Percent Auto 0.5 % (0-2); Eosinophils Absolute Auto 0.2 X10*3/uL (0.0-0.4); Eosinophils Percent Auto 3.2 % (0-4); Hematocrit 33.3 % (37.0-47.0); Hemoglobin 11.2 g/dl (12.0-16.0); Imm Gran Abs Auto 0.04 X10*3/uL (0.00-0.03); Imm Gran Pct Auto 0.5 % (0.0-0.4); Lymphocytes Percent Auto 13.8 % (20-40); Mean Corpuscular HGB Conc 33.6 g/dl (31.0-35.0); Mean Corpuscular Hemoglobin 31.5 pg (27.0-33.0); Mean Corpuscular Volume 93.5 fL (80.0-98.0); Mean Platelet Volume 8.6 fL (9.4-12.3); Monocytes Absolute Auto 0.6 X10*3/uL (0.1-1.2); Monocytes Percent Auto 8.1 % (2-11); Neutrophils Absolute Auto 5.5 x10*3/uL (2.0-8.3); Neutrophils Percent Auto 73.9 % (45-73); Platelet Count 175 X10*3/uL (160-400); Red Blood Count 3.56 X10*6/uL (4.20-5.50); Red Cell Distribution Width 13.2 % (11.0-16.0); White Blood Count 7.5 X10*3/uL (4.8-10.8)
[2021-09-05 06:21] LABS: Anion Gap 10 (12-20); Blood Urea Nitrogen 13 mg/dL (9-16); Calcium 8.1 mg/dL (8.4-10.2); Carbon Dioxide 29 mmol/L (22-29); Chloride 106 mmol/L (96-108); Creatinine Clr Calc Pharmacy 115.4; Estimated Glomerular Filt Rate > 60; Glucose Random 112 mg/dL (60-115); Potassium 4.5 mmol/L (3.3-5.1); Sodium 140 mmol/L (135-145)
[2021-09-05] MEDS: methADONE HCl 20 MG/2 ML ORAL.CONC 44 MG PO (07:54)
[2021-09-05] MEDS: Nicotine 21 MG PATCH.TD24 TRANSDERMA (07:55)
[2021-09-05] MEDS: Aspirin Enteric Coated 81 MG TABLET.DR PO (07:55)
[2021-09-05] MEDS: Levothyroxine Sodium 200 MCG TABLET PO (07:56)
[2021-09-05] MEDS: Theophylline Anhydrous ER 300 MG TAB.ER.12H PO ×2 (07:56→19:37)
[2021-09-05] MEDS: Lactated Ringers 500 ML 999 ML IV (07:56)
[2021-09-05] MEDS: Sertraline HCL 100 MG TABLET PO ×3 (07:56→19:38)
[2021-09-05] MEDS: Omeprazole 20 MG CAPSULE.DR PO ×2 (09:13→15:15)
--- NOTE | 2021-09-05 10:31 | P.PNVS_ITS ---
Subjective Subjective Date of Service: 09/05/21 Patient reports: no new complaints and feels better Interval history: Very pleasant 56-year-old female postop day 1 status post fem-fem bypass. No interval issues overnight. She has reasonable pain control. She has been receiving her methadone as well. She is now for routine postop follow-up. Physical Exam Vital Signs: Vital Signs: Last Vital Signs Temp 97.6 F 09/05/21 08:00 Pulse 76 09/05/21 09:00 Resp 14 09/05/21 10:24 BP 125/57 L 09/05/21 09:00 Pulse Ox 94 09/05/21 09:00 O2 Del Method 09/05/21 09:00 O2 Flow Rate 2 09/05/21 02:00 BMI result Body Mass Index 41.6 Const: General: cooperative, healthy appearing and no acute distress Orientation/consciousness: oriented to person, oriented to place and oriented to time HEENT: Head: Yes normal to inspection Neck: Carotids: no bruits Chest: Chest palpation & inspection: normal inspection of the chest Resp: Effort & Inspection: normal respiratory effort and able to speak in complete sentences Auscultation: clear to auscultation bilaterally Cardio: Rate: regular rate Heart sounds: S1 normal heart sound present and S2 normal heart sound present Peripheral pulses: posterior tibial pulses present (Bilateral triphasic posterior tibial signal) and dorsalis pedis present GI: Inspection: Yes normal to inspection Skin: General skin exam: no rashes or lesions noted Wounds: no wounds Neuro: General: oriented to person, oriented to place, oriented to time and CN's II-XI intact bilaterally Extrem: General: Yes normal to inspection, Yes full ROM and Yes no clubbing, cyanosis or edema Psych: Appearance: grossly normal and well kempt Speech and movement: Normal speech and movement present Affect: normal affect Progress Note: A&P Assessment and plan (1) PAD (peripheral artery disease): Status: Acute Assessment and Plan: In short patient is doing well status post bypass. We will maintain bed rest currently. We will start heparin as DVT prophylaxis. Babb and A-line can be removed. Patient can be transferred to [facility] with a tele pack. If stable will plan for out of bed for tomorrow. Thank you to the intensive his for their assistance in this patient's care. Time Spent With Patient Time: Total time spent is greater than 50% in coordination of care (as documented) at patient's floor/unit and/or counseling patient: Procedures Date of Service Date of Service: 09/05/21 Quality Stroke Does the patient have a stroke diagnosis?: No VTE Prior VTE?: No VTE Risk Level:: Surgical - high VTE Device Contraindication: N/A - Device Ordered VTE Drug Contraindication: N/A - Med Ordered
[2021-09-05] MEDS: Heparin Sodium,Porcine 5,000 UNIT/ML VIAL 5000 UNIT SUBCUT ×2 (11:33→19:37)
--- NOTE | 2021-09-05 13:39 | HO.POSTANES ---
Post Anesthesia Evaluation Post Anesthesia Evaluation Vital Signs: Vital Signs Temp Pulse Resp BP Pulse Ox O2 Del Method O2 Flow Rate 09/05/21 11:37 19 09/05/21 10:24 14 09/05/21 08:33 79 18 09/05/21 12:00 98.1 F 78 14 110/49 L 91 L Room Air 09/05/21 09:00 76 14 125/57 L 94 Room Air 09/05/21 08:00 97.6 F 72 15 110/95 H 95 Room Air 09/05/21 07:00 72 12 92/76 92 Room Air 09/05/21 06:35 91 L 09/05/21 06:00 75 16 123/96 H 89 L Room Air 09/05/21 05:00 75 15 97/65 89 L Room Air 09/05/21 04:00 74 16 113/98 H 91 L Room Air 09/05/21 03:00 69 9 L 137/72 94 Room Air 09/05/21 02:00 62 17 110/55 L 98 Nasal Cannula 2 Anesthesia: General Mental Status: Awake Pain Control: Satisfactory Nausea/Vomiting: None Hydration: Adequate
--- NOTE | 2021-09-05 14:14 | MHC.CM.PN ---
Met with pt and her mother to discuss d/c planning: pt resides alone, has 15.5 hours of weekly [employer] services for ADL/housekeeping/meal prep and some transportation. Pt uses a walker, cane and has adaptive safety bars/benches in her apt. HCP on file, IMM in chart, PCP confirmed: Vax x 3. Pt will return to home with existing supports/[employer] care. Her mother will transport. CM to follow
[2021-09-05] MEDS: Acetaminophen 325 MG TABLET 650 MG PO (17:40)
[2021-09-05] MEDS: Atorvastatin Calcium 40 MG TABLET PO (19:38)
[2021-09-06] VITALS (7 sets, daily range): BP systolic 128–153; BP diastolic 60–77; PULSE 74–83; RESP 16–18; TEMP 36–37.2; O2SAT 93–98
[2021-09-06] MEDS: Morphine Sulfate 2 MG/ML CARTRIDGE IVPUSH ×5 (03:35→21:28)
[2021-09-06] MEDS: Heparin Sodium,Porcine 5,000 UNIT/ML VIAL 5000 UNIT SUBCUT ×3 (03:36→17:36)
[2021-09-06] MEDS: Lactated Ringers 1,000 ML 100 ML IVCONT (05:25)
[2021-09-06] MEDS: Omeprazole 20 MG CAPSULE.DR PO ×2 (05:25→16:05)
[2021-09-06 05:42] LABS: Hematocrit 30.3 % (37.0-47.0); Hemoglobin 10.2 g/dl (12.0-16.0); Mean Corpuscular HGB Conc 33.7 g/dl (31.0-35.0); Mean Corpuscular Hemoglobin 31.6 pg (27.0-33.0); Mean Corpuscular Volume 93.8 fL (80.0-98.0); Mean Platelet Volume 8.9 fL (9.4-12.3); Platelet Count 150 X10*3/uL (160-400); Red Blood Count 3.23 X10*6/uL (4.20-5.50); Red Cell Distribution Width 13.1 % (11.0-16.0); White Blood Count 6.6 X10*3/uL (4.8-10.8)
[2021-09-06 05:59] LABS: Anion Gap 7 (12-20); Blood Urea Nitrogen 11 mg/dL (9-16); Calcium 8.2 mg/dL (8.4-10.2); Carbon Dioxide 30 mmol/L (22-29); Chloride 106 mmol/L (96-108); Estimated Glomerular Filt Rate > 60; Glucose Random 118 mg/dL (60-115); Potassium 4.2 mmol/L (3.3-5.1); Sodium 139 mmol/L (135-145)
[2021-09-06] MEDS: Nicotine 21 MG PATCH.TD24 TRANSDERMA (07:27)
[2021-09-06] MEDS: 0.9 % Sodium Chloride Flush 3 ML SYRINGE IVFLUSH ×3 (07:27→21:30)
[2021-09-06] MEDS: Sertraline HCL 100 MG TABLET PO ×3 (07:28→21:28)
[2021-09-06] MEDS: Aspirin Enteric Coated 81 MG TABLET.DR PO (07:28)
[2021-09-06] MEDS: Theophylline Anhydrous ER 300 MG TAB.ER.12H PO ×2 (07:28→21:28)
[2021-09-06] MEDS: Levothyroxine Sodium 200 MCG TABLET PO (07:28)
[2021-09-06] MEDS: methADONE HCl 20 MG/2 ML ORAL.CONC 44 MG PO (07:29)
--- NOTE | 2021-09-06 14:31 | HO.VASCPN ---
Subjective Subjective Date of Service: 09/06/21 Patient reports: no new complaints and feels better Interval history: Patient seen and examined. No significant events. Reports that she has reasonable pain control. Feels much better. There is some mild numbness at incision site but other than that no significant complaints. Passing flatus no bowel movement. Physical Exam Vital Signs: Vital Signs: Last Vital Signs Temp 97.4 F 09/06/21 11:38 Pulse 81 09/06/21 11:38 Resp 16 09/06/21 11:38 BP 138/70 09/06/21 11:38 Pulse Ox 93 09/06/21 11:38 O2 Del Method 09/06/21 11:38 O2 Flow Rate 74 09/06/21 07:43 BMI result Body Mass Index 41.6 Const: General: cooperative, healthy appearing and no acute distress Orientation/consciousness: oriented to person, oriented to place and oriented to time HEENT: Head: Yes normal to inspection Neck: Carotids: no bruits Chest: Chest palpation & inspection: normal inspection of the chest Resp: Effort & Inspection: normal respiratory effort and able to speak in complete sentences Auscultation: clear to auscultation bilaterally Cardio: Rate: regular rate Heart sounds: S1 normal heart sound present and S2 normal heart sound present GI: Inspection: Yes normal to inspection Skin: Other: Bilateral groin incisions well healed General skin exam: no rashes or lesions noted Wounds: no wounds Neuro: General: oriented to person, oriented to place, oriented to time and CN's II-XI intact bilaterally Extrem: General: Yes normal to inspection, Yes full ROM and Yes no clubbing, cyanosis or edema Psych: Appearance: grossly normal and well kempt Speech and movement: Normal speech and movement present Affect: normal affect Progress Note: A&P Assessment and plan (1) PAD (peripheral artery disease): Status: Acute Assessment and Plan: Patient is doing well status post fem to fem bypass. No issues overnight. Reports that she is fairly comfortable. She is still requiring IV pain medication. We will see how she does overnight. Hope that we can discharge her tomorrow. We will continue with ambulation and strengthening as she progresses. Should pain decrease and stabilized anticipate discharge as early as tomorrow. Time Spent With Patient Time: Total time spent is greater than 50% in coordination of care (as documented) at patient's floor/unit and/or counseling patient: Procedures Date of Service Date of Service: 09/06/21 Quality Stroke Does the patient have a stroke diagnosis?: No VTE Prior VTE?: No VTE Risk Level:: Surgical - high VTE Device Contraindication: N/A - Device Ordered VTE Drug Contraindication: N/A - Med Ordered
--- NOTE | 2021-09-06 15:53 | P.PNIM_ITS ---
Subjective Subjective Date of Service: 09/06/21 Interval History: the patient was seen and evaluated this morning Laying in bed, feels comfortable Denies any fever, chills or shortness of breath No reported other overnight events. Systemic review: No fever, chills or weakness No chest pain, palpitation No shortness of breath or coughing No abdominal pain, nausea or vomiting No urinary symptoms No any rash or wounds Physical Exam Vital Signs: Vital Signs: Last Vital Signs Temp 97.5 F 09/06/21 15:14 Pulse 82 09/06/21 15:14 Resp 18 09/06/21 15:14 BP 141/69 H 09/06/21 15:14 Pulse Ox 97 09/06/21 15:14 O2 Del Method 09/06/21 15:14 O2 Flow Rate 74 09/06/21 07:43 BMI result Body Mass Index 41.6 Const: Other: Constitutional : Alert, oriented, not in distress Neck : Normal inspection, Supple Cardiovascular : RRR, no JVP, no lower extremity edema Respiratory : fair bilateral air entry, no crackles, wheezes or rhonchi Gastrointestinal: soft, lax, Normal bowel sounds, Non tender Skin : Warm, Dry Vascular: for pulses and blood supply at lower extremities Neurological : Alert & oriented x3, No focal deficit , CN 2-12 within normal Objective Data Active Medications Acetaminophen (Acetaminophen 325 Mg Tablet) 650 mg PO Q6H PRN PRN Reason: Pain, Mild (Pain Scale 1-3) Last Admin: 09/05/21 17:40 Dose: 650 mg Documented By: ABIODUN Albuterol Sulfate (Albuterol Sulfate (0.083%) 2.5 Mg/3 Ml Vial.Neb) 2.5 mg INHALE ONCE PRN PRN Reason: Shortness of Breath/Wheezing Albuterol Sulfate (Albuterol Sulfate 90 Mcg 8 Gm Inhaler) 2 puff INHALE Q4H PRN PRN Reason: Shortness Of Breath Or Wheezing Aspirin (Aspirin Enteric Coated 81 Mg Tablet.) 81 mg PO DAILY [facility] Last Admin: 09/06/21 07:28 Dose: 81 mg Documented By: ABIODUN Atorvastatin Calcium (Atorvastatin Calcium 40 Mg Tablet) 40 mg PO BEDTIME [facility] Last Admin: 09/05/21 19:38 Dose: 40 mg Documented By: KENNETH Heparin Sodium (Porcine) (Heparin Sodium,Porcine 5,000 Unit/Ml Vial) 5,000 unit SUBCUT Q8H [facility] Last Admin: 09/06/21 10:51 Dose: 5,000 unit Documented By: ABIODUN Lactulose (Lactulose 20 Gm/30 Ml Solution) 10 gm PO TID PRN PRN Reason: Abdominal Discomfort Levothyroxine Sodium (Levothyroxine Sodium 200 Mcg Tablet) 200 mcg PO DAILY [facility] Last Admin: 09/06/21 07:28 Dose: 200 mcg Documented By: ABIODUN Meclizine HCl (Meclizine Hcl 25 Mg Tablet) 25 mg PO TID PRN PRN Reason: dizziness Methadone HCl (Methadone Hcl 20 Mg/2 Ml Oral.Conc) 43 mg PO DAILY [facility] Stop: 09/13/21 09:01 Methadone HCl (Methadone Hcl 20 Mg/2 Ml Oral.Conc) 42 mg PO DAILY [facility] Stop: 09/20/21 09:01 Morphine Sulfate (Morphine Sulfate 2 Mg/Ml Cartridge) 2 mg IVPUSH Q4H PRN; Protocol PRN Reason: Pain, Severe (Pain Scale 7-10) Last Admin: 09/06/21 13:14 Dose: 2 mg Documented By: ABIODUN Nicotine (Nicotine 21 Mg Patch.Td24) 21 mg TRANSDERMA DAILY [facility] Last Admin: 09/06/21 07:27 Dose: 21 mg Documented By: ABIODUN Patient Own Med( Fluticasone- Umeclidin-Vilanter [ Trelegy Ellipta] 200 -62.5-25 Mcg 1 inhalation PO RDAILY [facility] Last Admin: 09/06/21 10:57 Dose: 1 inhalation Documented By: ABIODUN Omeprazole (Omeprazole 20 Mg Capsule.Dr) 20 mg PO BID@0630,1630 [facility] Last Admin: 09/06/21 05:25 Dose: 20 mg Documented By: DEE DEEQC Ondansetron HCl (Ondansetron Hcl 4 Mg/2 Ml Vial) 4 mg IVPUSH ONCE PRN PRN Reason: Nausea and Vomiting Sertraline HCl (Sertraline Hcl 100 Mg Tablet) 100 mg PO TID [facility] Last Admin: 09/06/21 07:28 Dose: 100 mg Documented By: ABIODUN Sodium Chloride (0.9 % Sodium Chloride Flush 3 Ml Syringe) 3 ml IVFLUSH QSHIFT [facility] Last Admin: 09/06/21 07:27 Dose: 3 ml Documented By: ABIODUN Sodium Chloride (0.9 % Sodium Chloride Flush 3 Ml Syringe) 3 ml IVFLUSH QSHIFT [facility] Last Admin: 09/06/21 07:30 Dose: Not Given Documented By: ABIODUN Non-Admin Reason: IV Running Theophylline (Theophylline Anhydrous Er 300 Mg Tab.Er.12h) 300 mg PO BID [facility] Last Admin: 09/06/21 07:28 Dose: 300 mg Documented By: ABIODUN Labs CBC & Chem 7: 09/06/21 05:16 09/06/21 05:16 Labs: Laboratory Results - last 24 hr 09/06/21 09/06/21 05:16 05:16 MCV 93.8 MCH 31.6 MCHC 33.7 RDW 13.1 Plt Count 150 L MPV 8.9 L Absolute Nucleated RBC 0.000 Nucleated RBC % (auto) 0.0 Anion Gap 7 L Estim Creat Clear Calc 120.0 Estimated GFR > 60 Random Glucose 118 H Calcium 8.2 L Assessment and Plan (1) COPD (chronic obstructive pulmonary disease): Status: Acute Plan 56 years old lady with PMH of some P 80, COPD, morbid obesity who presented for bypass surgery. PAD Day 1 post surgical bypass Followed by vascular surgery Pain Management Methadone maintenance along with p.r.n. opiates for more severe pain? COPD Not in exacerbation Continue home medication Hypothyroidism Continue levothyroxine continue rest of her home medications thank you for the consult. Will sign off for now. Please consult the medical team for anyQuestions Quality Stroke Does the patient have a stroke diagnosis?: No VTE Prior VTE?: No VTE Risk Level:: Surgical - high VTE Device Contraindication: N/A - Device Ordered VTE Drug Contraindication: N/A - Med Ordered
[2021-09-06] MEDS: Atorvastatin Calcium 40 MG TABLET PO (21:28)
[2021-09-07] MEDS: Heparin Sodium,Porcine 5,000 UNIT/ML VIAL 5000 UNIT SUBCUT (02:49)
[2021-09-07] MEDS: Morphine Sulfate 2 MG/ML CARTRIDGE IVPUSH ×2 (02:49→07:42)
[2021-09-07 03:20] VITALS: BP 121/58; PULSE 77; RESP 17; TEMP 36; O2SAT 93
[2021-09-07] MEDS: Omeprazole 20 MG CAPSULE.DR PO (06:03)
[2021-09-07] MEDS: methADONE HCl 20 MG/2 ML ORAL.CONC 43 MG PO (06:10)
[2021-09-07] MEDS: Lactulose 20 GM/30 ML SOLUTION 10 GM PO (06:12)
[2021-09-07 07:31] VITALS: BP 141/69; PULSE 77; RESP 14; TEMP 36.5; O2SAT 98
[2021-09-07] MEDS: Sertraline HCL 100 MG TABLET PO (07:37)
[2021-09-07] MEDS: Levothyroxine Sodium 200 MCG TABLET PO (07:37)
[2021-09-07] MEDS: Aspirin Enteric Coated 81 MG TABLET.DR PO (07:37)
[2021-09-07] MEDS: Nicotine 21 MG PATCH.TD24 TRANSDERMA (07:37)
[2021-09-07] MEDS: Theophylline Anhydrous ER 300 MG TAB.ER.12H PO (07:37)
[2021-09-07] MEDS: 0.9 % Sodium Chloride Flush 3 ML SYRINGE IVFLUSH ×2 (07:38→07:41)
--- NOTE | 2021-09-07 09:21 | PM.DS ---
DS: Providers Provider Date of Service: 09/07/21 Date of admission: 09/04/21 06:13 Primary care physician: Chapin Collier MD DS: Diagnosis Discharge Diagnosis (1) PAD (peripheral artery disease): Status: Acute DS: Summary Hospital Course Hospital Course: Patient underwent femoral to femoral bypass on SaturdaySeptember 04. She had no postoperative issues. She reports she is doing fairly well. She was observed the 1st night in the ICU and subsequently transferred to her medical surgical floor. She had progressed very well. She was ambulating on her own at the time of discharge. Pain was reasonably well controlled. She was stable for discharge. Time spent discussing smoking cessation with patient: more than 10 minutes Status at Discharge Functional status at discharge: independent ambulation Overall status at discharge: patient is back to baseline Time Spent with Patient Time attestation: Total time spent providing and/or coordinating discharge services: Discharge coordination time: Greater than 30 minutes Quality: Safe Use of Opioids Does Pt have an Active Cancer Diagnosis on the Problem List?: No Quality: Stroke Does the patient have a stroke diagnosis?: No Physical Exam Vital Signs: Vital Signs: Last Vital Signs Temp 97.7 F 09/07/21 07:31 Pulse 77 09/07/21 07:31 Resp 14 09/07/21 07:31 BP 141/69 H 09/07/21 07:31 Pulse Ox 98 09/07/21 07:31 O2 Del Method 09/07/21 07:31 O2 Flow Rate 74 09/06/21 07:43 BMI result Body Mass Index 41.6 Const: General: cooperative, healthy appearing and no acute distress Orientation/consciousness: oriented to person, oriented to place and oriented to time HEENT: Head: Yes normal to inspection Neck: Carotids: no bruits Chest: Chest palpation & inspection: normal inspection of the chest Resp: Effort & Inspection: normal respiratory effort and able to speak in complete sentences Auscultation: clear to auscultation bilaterally Cardio: Rate: regular rate Heart sounds: S1 normal heart sound present and S2 normal heart sound present GI: Inspection: Yes normal to inspection Skin: Other: Bilateral groins healing General skin exam: no rashes or lesions noted Wounds: no wounds Neuro: General: oriented to person, oriented to place, oriented to time and CN's II-XI intact bilaterally Extrem: General: Yes normal to inspection, Yes full ROM and Yes no clubbing, cyanosis or edema Psych: Appearance: grossly normal and well kempt Speech and movement: Normal speech and movement present Affect: normal affect DS: Data Data Completed and Pending Completed studies during hospitalization [Text1]: Pending at discharge 09/04/21 10:07 Surgical [PTH] Routine Discharge Plan Discharge Patient Disposition: Home, Self-Care Discharge Diagnosis: Status post femoral to femoral bypass Referrals: Chapin Collier MD [Primary Care Provider] - 1 Week Discharge Medications: New oxycodone [OxyContin] 10 mg tablet,oral only,ext.rel.12 hr 10 mg PO Q12H Qty: 20 0RF Rx Instructions: Partial Fill upon patient request. Continued lactulose 10 gram/15 mL solution 15 ml PO TID PRN (Reason: Abdominal Discomfort) meclizine 25 mg tablet 1 tab PO TID PRN (Reason: dizziness) aspirin 81 mg Tablet,Delayed Release (Dr/Ec) 81 mg PO DAILY hydrochlorothiazide 25 mg tablet 25 mg PO DAILY pantoprazole 40 mg tablet,delayed release (DR/EC) 40 mg PO BID theophylline 300 mg tablet extended release 12 hr 300 mg PO BID levothyroxine 200 mcg tablet 200 mcg PO DAILY propranolol 20 mg tablet 20 mg PO DAILY albuterol sulfate [Ventolin HFA] 90 mcg/actuation HFA aerosol inhaler 2 puff inhalation Q4-6H PRN (Reason: Shortness Of Breath Or Wheezing) sertraline 100 mg tablet 100 mg PO TID nystatin 100,000 unit/gram cream topical BID PRN (Reason: Skin Irritation) methadone 10 mg/5 mL solution 44 mg PO DAILY Rx Instructions: 44MG 08/31-09/06 43MG 09/07 -09/13 atorvastatin 40 mg tablet 40 mg PO BEDTIME Ferretts 325 mg (106 mg iron) tablet 325 mg PO DAILY triamcinolone acetonide 0.025 % cream 1 appl topical BID PRN (Reason: Skin Irritation) calcipotriene 0.005 % ointment 1 appl topical BID PRN (Reason: Skin Irritation) clonazepam 1 mg tablet 1 mg PO BID PRN (Reason: Anxiety) Trelegy Ellipta 200-62.5-25 mcg blister with device 1 inh PO DAILY Discharge Orders: Discharge Order (Routine); Ordered 09/07/21 Ordered By: Axel Marks Diet: Advance to usual diet Activity on Discharge: As tolerated Stand Alone Forms: Patient Portal Discharge page Activity Restrictions/Additional Instructions: Skin violet were used you may shower on Saturday Take it easy today and you may ambulate around the house. Within 24 hours you can resume normal activity You may climb a flight of stairs as tolerated Do not lift anything heavier than a gallon of milk. See Dr. Marks in follow-up in approximately 2 weeks time. You should already have an appointment if not please call my office at [phone] Please see above for any change in medications If you notice excessive bleeding from the groin please immediately call my office or return to the emergency room. Care Plan Goals: Continue to ambulate Health Concerns: Peripheral vascular disease Plan of Treatment: Surveillance follow-up of bypass Assessment: Peripheral vascular disease
--- NOTE | 2021-09-07 09:35 | MHC.CM.PN ---
Pt has been medically cleared for discharge today. Discharge is Home (Self-Care).
== END 2021-09-07 11:46 | disposition home or self-care (01) | DRG 253 ==
LOC: HO.SSSA 06:15 → HO.ICU 11:52 → HO.S3 09-05 13:51
PROVIDERS: Nurse Practitioner; Admitting Provider Surgery Vascular Surgery; PCP Internal Medicine; Visit Provider Surgery Vascular Surgery
PROC: 041L0JJ Bypass Left Femoral Artery to Left Femoral Artery with Synthetic Substitute, Open Approach (ICD-10-PCS; principal; 2021-09-04 07:30)
DX: I70.212 Atherosclerosis of native arteries of extremities with intermittent claudication, left leg (principal); F11.20 Opioid dependence, uncomplicated; Z68.41 Body mass index [BMI] 40.0-44.9, adult; F41.9 Anxiety disorder, unspecified; M51.36 Other intervertebral disc degeneration, lumbar region; K21.9 Gastro-esophageal reflux disease without esophagitis; E03.9 Hypothyroidism, unspecified; L30.9 Dermatitis, unspecified; E66.8 Other obesity; J44.9 Chronic obstructive pulmonary disease, unspecified; F43.10 Post-traumatic stress disorder, unspecified; Z98.1 Arthrodesis status; F17.210 Nicotine dependence, cigarettes, uncomplicated; Z71.6 Tobacco abuse counseling; Z20.822 Contact with and (suspected) exposure to COVID-19; Z79.82 Long term (current) use of aspirin; Z79.51 Long term (current) use of inhaled steroids; Z79.899 Other long term (current) drug therapy
CPT/HCPCS: 36415; 80048; 85025; 85027; 85610; 85730; 86850; 86900; 86901; 87635; 88304; C1758; C1768; J0131; J0690; J1170; J2250; J2270; J2370; J2795; J3010

== ENCOUNTER → 2021-09-19 11:01 | Outpatient (BNVA) | payer OTHER, SELFPAY | PROVIDERS: PCP Internal Medicine; Visit Provider Surgery Vascular Surgery | DX: I73.9 Peripheral vascular disease, unspecified (principal) | CPT/HCPCS: 99212 ==

== ENCOUNTER → 2021-10-03 13:56 | Outpatient (BNVA) | payer OTHER, SELFPAY | PROVIDERS: PCP Internal Medicine; Visit Provider Surgery Vascular Surgery | DX: I73.9 Peripheral vascular disease, unspecified (principal); Z98.890 Other specified postprocedural states | CPT/HCPCS: 99212 ==

== ENCOUNTER 2022-03-20 14:13 | Outpatient (REF) | payer OTHER, SELFPAY ==
--- NOTE | ~2022-03-20 | US_ITS ---
EXAMINATION: ANKLE-BRACHIAL INDICES SINGLE LEVEL PULSE VOLUME RECORDING ARTERIAL DUPLEX BILATERAL LEGS CLINICAL INFORMATION: Peripheral vascular disease. COMPARISON: 05/16/2021. TECHNIQUE: Ankle-brachial indices and PVR at the ankle were obtained. Duplex Doppler of the bilateral lower extremity arterial systems was performed. FINDINGS: RIGHT: Ankle-brachial index: 0.79 PVR: Mildly abnormal. Common femoral: PSV 181 cm/s. Triphasic waveform. Deep femoral: PSV 55 cm/s. Monophasic waveform. Proximal superficial femoral: PSV 88 cm/s. Monophasic waveform. Mid superficial femoral: PSV 88 cm/s. Triphasic waveform. Distal superficial femoral: PSV 63 cm/s. Triphasic waveform. Popliteal: PSV 51 cm/s. Triphasic waveform. Posterior tibial: PSV 41 cm/s. Biphasic waveform. Peroneal: PSV 32 cm/s. Biphasic waveform. Femoral-femoral bypass: Inflow: 217 cm/s. Monophasic waveform. Proximal anastomosis: 273 cm/s. Monophasic waveform. Proximal graft: 166 cm/s. Monophasic waveform. Mid graft: 137 cm/s. Monophasic waveform. Distal graft: 185 cm/s. Monophasic waveform Distal anastomosis: 355 cm/s. Monophasic waveform. Outflow: 305 cm/s monophasic waveform. LEFT: Ankle-brachial index: 0.59 PVR: Mildly abnormal. Common femoral: PSV 180 cm/s. Monophasic waveform. Deep femoral: PSV 86 cm/s. Monophasic waveform. Proximal superficial femoral: PSV 111 cm/s. Monophasic waveform. Mid superficial femoral: PSV 72 cm/s. Monophasic waveform. Distal superficial femoral: PSV 66 cm/s. Monophasic waveform. Popliteal: PSV 36 cm/s. Monophasic waveform. Posterior tibial: PSV 29 cm/s. Monophasic waveform. Peroneal: PSV 14 cm/s. Monophasic waveform. US/US arterial duplex LE BI IMPRESSION: Right lower extremity: Abnormal RICHARD 0.79 (decreased from 0.94). Mildly abnormal PVR waveform. The femoral to femoral bypass graft is patent with a monophasic waveform and focally elevated velocity at the distal anastomosis suggestive of a high-grade stenosis. Left lower extremity: Abnormal RICHARD 0.59 (increased from 0.34). Mildly abnormal PVR waveform. Monophasic waveform throughout the lower extremity would suggest iliac level inflow disease.
--- NOTE | ~2022-03-20 | US_ITS ---
EXAMINATION: ANKLE-BRACHIAL INDICES SINGLE LEVEL PULSE VOLUME RECORDING ARTERIAL DUPLEX BILATERAL LEGS CLINICAL INFORMATION: Peripheral vascular disease. COMPARISON: 05/16/2021. TECHNIQUE: Ankle-brachial indices and PVR at the ankle were obtained. Duplex Doppler of the bilateral lower extremity arterial systems was performed. FINDINGS: RIGHT: Ankle-brachial index: 0.79 PVR: Mildly abnormal. Common femoral: PSV 181 cm/s. Triphasic waveform. Deep femoral: PSV 55 cm/s. Monophasic waveform. Proximal superficial femoral: PSV 88 cm/s. Monophasic waveform. Mid superficial femoral: PSV 88 cm/s. Triphasic waveform. Distal superficial femoral: PSV 63 cm/s. Triphasic waveform. Popliteal: PSV 51 cm/s. Triphasic waveform. Posterior tibial: PSV 41 cm/s. Biphasic waveform. Peroneal: PSV 32 cm/s. Biphasic waveform. Femoral-femoral bypass: Inflow: 217 cm/s. Monophasic waveform. Proximal anastomosis: 273 cm/s. Monophasic waveform. Proximal graft: 166 cm/s. Monophasic waveform. Mid graft: 137 cm/s. Monophasic waveform. Distal graft: 185 cm/s. Monophasic waveform Distal anastomosis: 355 cm/s. Monophasic waveform. Outflow: 305 cm/s monophasic waveform. LEFT: Ankle-brachial index: 0.59 PVR: Mildly abnormal. Common femoral: PSV 180 cm/s. Monophasic waveform. Deep femoral: PSV 86 cm/s. Monophasic waveform. Proximal superficial femoral: PSV 111 cm/s. Monophasic waveform. Mid superficial femoral: PSV 72 cm/s. Monophasic waveform. Distal superficial femoral: PSV 66 cm/s. Monophasic waveform. Popliteal: PSV 36 cm/s. Monophasic waveform. Posterior tibial: PSV 29 cm/s. Monophasic waveform. Peroneal: PSV 14 cm/s. Monophasic waveform. US/US RICHARD complete IMPRESSION: Right lower extremity: Abnormal RICHARD 0.79 (decreased from 0.94). Mildly abnormal PVR waveform. The femoral to femoral bypass graft is patent with a monophasic waveform and focally elevated velocity at the distal anastomosis suggestive of a high-grade stenosis. Left lower extremity: Abnormal RICHARD 0.59 (increased from 0.34). Mildly abnormal PVR waveform. Monophasic waveform throughout the lower extremity would suggest iliac level inflow disease.
== END 2022-03-20 14:14 | disposition home or self-care (01) ==
LOC: HO.US 14:13
PROVIDERS: Visit Provider Surgery Vascular Surgery
DX: I70.213 Atherosclerosis of native arteries of extremities with intermittent claudication, bilateral legs (principal)
CPT/HCPCS: 93923; 93925

== ENCOUNTER → 2022-03-27 14:38 | Outpatient (BNVA) | payer OTHER, SELFPAY | PROVIDERS: PCP Internal Medicine; Visit Provider Surgery Vascular Surgery | DX: I73.9 Peripheral vascular disease, unspecified (principal); F17.210 Nicotine dependence, cigarettes, uncomplicated | CPT/HCPCS: 99212 ==